=== PATIENT | male | born 1990 | race Caucasian/White ===

== ENCOUNTER 2016-09-10 19:44 | Emergency (ER) | payer MEDICARE, OTHER ==
[2016-09-10] MEDS ORDERED: DIPHTH,PERTUSS(ACELL),TET VAC 0.5 ML VIAL IM ONE ×2 (20:59→21:01)
[2016-09-10] MEDS ORDERED: AMOX TR/POTASSIUM CLAVULANATE 875 MG TABLET PO ONE (21:50)
[2016-09-10] MEDS ORDERED: AMOX TR/POTASSIUM CLAVULANATE 875 MG TABLET ONE (21:52)
--- OUTSIDE RECORDS SUMMARY | 2016-09-10 21:52 | XMS REPORT | Continuity of Care Document ---
:1990 Author Organization [facility] ([facility]) Address [address] [place] [address] Phone [phone] Care Team Providers Name Role Phone JaneDany Primary Care Provider [phone] Source Comments This disclosure is being made pursuant to the Care Everywhere program, applicable federal and state laws, and may not contain all informaitonavailable regarding this patient.[facility] ([facility]) Active Allergies and Adverse Reactions No Known Allergies Current Medications Prescription Sig. Disp. Refills Start Date End Date Status montelukast take 10 mg by mouth Active (SINGULAIR) 10 mg daily. tablet levothyroxine 112 mcg Take 112 mcg by mouth Active tablet daily. Indications: Hypothyroidism DIAZEPAM (VALIUM PO) Take 500 mg by mouth Active 2 times daily. midazolam 5 mg/mL 1 ml in nose for GTC 3 mL 4 01/16/2012 Active injection lasting over 3-5 min. Or if 2 or more seizures in 1 day Indications: STATUS EPILEPTICUS zonisamide 100 mg Take 3 Caps by mouth 180 Cap 6 02/16/2012 Active capsule 2 times daily. Indications: PARTIAL EPILEPSY TREATMENT ADJUNCT topiramate 200 mg Take 1 Tab by mouth 2 60 Tab 5 02/16/2012 Active tablet times daily. Indications: TONIC-CLONIC EPILEPSY lacosamide (VIMPAT) Take 1 Tab by mouth 2 60 Tab 0 07/28/2012 Active 200 mg tablet times daily. 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 Other convulsions 11/25/2007 Resolved Problems Problem Noted Date Resolved Date Headache(784.0) 07/02/2007 05/18/2011 Immunizations Name Dates Previously Given Next Due Influenza, live attenuated nasal 05/14/2011 Social History Tobacco Use Types Packs/Day Years Used Date Never Smoker Smokeless Tobacco: Never Used Last Filed Vital Signs Vital Sign Reading Time Taken Blood Pressure 129/66 08/21/2011 10:59 AM CDT Pulse 91 08/21/2011 10:59 AM CDT Temperature 36.7 C (98.1 F) 05/18/2011 8:00 AM COMPLEX MANAGER Respiratory Rate 16 05/18/2011 8:00 AM COMPLEX MANAGER Height 1.88 m (6' 2") 08/21/2011 10:59 AM CDT Weight 131.679 kg (290 lb 4.8 oz) 08/21/2011 10:59 AM CDT Body Mass Index 37.26 08/21/2011 10:59 AM CDT Oxygen Saturation 98% 05/18/2011 8:00 AM COMPLEX MANAGER Plan of Care Health Maintenance Due Date Last Done Comments Hepatitis B Vaccine (1 of 3 - Primary Series) 1991 HPV Vaccine (1 of 3 - Male 3 Dose Series) 2002 Tdap Vaccine 2002 Lipid Disorder Screening 2009 MMR Vaccine 2009 Td Vaccine 2009 Varicella Vaccine (1 of 2 - Adult - No Evidence of 06/11/2011 Immunity) Influenza Vaccine: Seasonal (#1) 11/19/2015 05/14/2011 Results from Last 3 Months Not on file
--- NOTE | 2016-09-10 21:53 | ERNOTE ---
Animal Bite ER Presenting Symptoms: bitten Time Seen by Provider: 09/10/16 21:40 Source: patient Exam Limitations: no limitations Immunizations: IMMUNIZATION HX Immunizations Up to Date No History of Influenza Vaccine No Hx Pneumococcal Vaccination No Allergies/Adverse Reactions: Allergies No Known Allergies Allergy (Verified 09/10/16 20:13) Home Medications: HOME MEDICATIONS Levothyroxine Sodium [Synthroid] 137 mcg PO DAILY 09/23/15 [Last Taken Unknown] Montelukast Sodium [Singulair] 10 mg PO HS 09/23/15 [Last Taken Unknown] Topiramate [Topamax] 300 mg PO BID 09/23/15 [Last Taken Unknown] Zonisamide [Zonegran] 300 mg PO BID 09/23/15 [Last Taken Unknown] clonazePAM [Klonopin] 1 mg PO BID 09/23/15 [Last Taken Unknown] Amox Tr/Potassium Clavulanate [Augmentin 875-125 Tablet] 875 mg PO Q12H #14 tab 09/10/16 [Last Taken Unknown] Narrative: Pt's dogs were fighting and he tried to pull them apart and got bitten on the left hand Onset Time: today Location of Incident: Reports: home Animal Type: Reports: dog, family pet Animal Appearance: healthy Animal's Immunization Status: Reports: UTD Observation/Capture: Reports: animal can be observed for 10 days Context of Attack: Reports: animals fighting Severity of injury: Reports: bitten Location of Injury: Reports: upper extremity (R) Associated symptoms: Reports: pain on movement Review of Systems - Review of Systems Constitutional: Absent: recent illness EYE: Present: no symptoms reported Musculoskeletal: Present: muscle pain, muscle stiffness Skin: Present: See HPI Neurological: Absent: numbness, tingling - Patient's Past Medical History Patient History - Medical: No pertinent hx, Hypothyroidism, Seizures Patient History - Cardiac/Respiratory: Other Patient History - Cancer: No Hx of Cancer Patient History - Surgical Procedures: T & A Patient History - Other: None - Social History Living Situations: home Abuse History: No History of abuse Psych History: No pertinent hx Smoking Status: Former smoker Alcohol Use: occasionally Drug Use: none - Immunizations Immunizations Up to Date: No Hx Pneumococcal Vaccination: No History of Influenza Vaccine: No Physical Exam - Physical Exam General Appearance: Present: wd/wn, alert, no apparent distress Extremity Exam: Present: normal except - - swelling of the left thumb web, mild pain with palpation, mild induration Neurological Exam: Present: alert, oriented, normal mood/affect, no motor/ sensory deficits Skin Exam: Present: other - left hand at the 1st MCPJ has a puncture wound and # 2- 1cm scratches near the base. Puncture wound is bleeding slowly ED Progress - Vital Signs Vital Signs: Vital Signs 09/10/16 20:09 Temperature 37 C Pulse Rate 80 Respiratory 18 Rate Blood Pressure 118/68 O2 Sat by Pulse 98 Oximetry - Progress/Reassessment Chief Complaint: Animal Bite Departure Clinical Impression: Dog bite of hand Qualifiers: Encounter type: initial encounter Laterality: left Qualified Code(s): S61.452A - Open bite of left hand, initial encounter - Departure Disposition: Home Follow Up Needed Condition: Good Instructions: Animal Bite Additional Instructions: See your regular doctor in 3-5 days to follow healing process Referrals: Dany Lara MD [Primary Care Provider] - Prescriptions: Amox Tr/Potassium Clavulanate [Augmentin 875-125 Tablet] 875 mg PO Q12H #14 tab
[2016-09-10 22:01] VITALS: BP 140/81
== END 2016-09-10 22:00 | disposition home or self-care (01) ==
LOC: ER 19:44
DX: S61.452A Open bite of left hand, initial encounter (principal); W54.0XXA Bitten by dog, initial encounter; Y93.9 Activity, unspecified; Y92.009 Unspecified place in unspecified non-institutional (private) residence as the place of occurrence of the external cause; Z23 Encounter for immunization; G40.409 Other generalized epilepsy and epileptic syndromes, not intractable, without status epilepticus

== ENCOUNTER 2017-03-13 23:24 | Emergency (ER) | payer MEDICARE, OTHER ==
[2017-03-13 23:43] LABS: Hematocrit 45.9 % (42.0-52.0); Hemoglobin 16.2 gm/dL (13.5-18.0); Mean Cell Volume 86.6 fl (78-100); Mean Corpuscular Hemoglobin 30.6 pg (27-31); Mean Corpuscular Hgb Conc 35.3 g/dl (32-36); Mean Platelet Volume 10.6 fl (6.0-9.5); Neutrophil # 3.6 K/mm3 (1.3-6.0); Platelet Count 235 K/mm3 (150-450); Red Cell Distribution Width 12.4 % (11.5-14.0); White Blood Count 7.5 K/mm3 (4.0-10.5)
[2017-03-13 23:53] LABS: Phenytoin 0.7 mcg/mL (10-20)
[2017-03-13] MEDS ORDERED: LORazepam 2 MG/ML DISP.SYRIN ONE (23:54)
[2017-03-13] MEDS ORDERED: LORazepam 2 MG/ML DISP.SYRIN IM ONE (23:57)
[2017-03-13] MEDS ORDERED: PHENYTOIN SODIUM 1,000 MG in NORMAL SALINE 50 ML IV ONE (23:59)
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
[2017-03-14 00:32] VITALS: BP 133/63
== END 2017-03-14 01:00 ==
LOC: ER 23:24
DX: R56.9 Unspecified convulsions (principal); F10.129 Alcohol abuse with intoxication, unspecified; F17.200 Nicotine dependence, unspecified, uncomplicated
CPT/HCPCS: 36415; 80185; 85025; 96365; 96372; 99284; G0481

== ENCOUNTER 2017-03-14 03:25 | Emergency (ER) | payer MEDICARE, OTHER ==
[2017-03-14] MEDS ORDERED: NORMAL SALINE 1,000 ML IV ONE (03:35)
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
[2017-03-14 04:00] LABS: Cocaine Ur Negative (NEGATIVE); Urine Barbiturate Negative (NEGATIVE); Urine Benzodiazepines Negative (NEGATIVE); Urine Opiates Negative (NEGATIVE); Urine PCP Negative (NEGATIVE); Urine THC Negative (NEGATIVE)
[2017-03-14 04:12] LABS: Albumin * 4.3 gm/dl (3.4-5.0); Anion Gap 19.2 mmol/L (6.8-13.8); BUN/Creatinine Ratio 8.3 (9.0-21.6); Bilirubin, Total 0.2 mg/dL (0.0-1.1); Ca. Corrected For Albumin 8.1 mg/dL (8.4-10.2); Calcium * 8.7 mg/dL (7.9-10.9); Carbon Dioxide 22.3 mmol/L (24-32.6); Potassium 3.5 mmol/L (3.4-4.6); Total Protein 7.9 gm/dL (6.2-8.2)
[2017-03-14] MEDS ORDERED: ACETAMINOPHEN 325 MG TABLET ONE (04:17)
[2017-03-14] MEDS ORDERED: LORazepam 2 MG/ML DISP.SYRIN ONE (04:18)
[2017-03-14] MEDS: LORazepam 2 MG/ML DISP.SYRIN IV ONE ×3 (04:22→04:31)
[2017-03-14] MEDS ORDERED: ACETAMINOPHEN 325 MG TABLET PO ONE (04:23)
[2017-03-14 04:40] VITALS: BP 115/74
== END 2017-03-14 04:40 ==
LOC: ER 03:25
PROC: 0T9B7ZZ Drainage of Bladder, Via Natural or Artificial Opening (ICD-10-PCS; principal; 2017-03-14)
DX: R56.9 Unspecified convulsions (principal); F17.200 Nicotine dependence, unspecified, uncomplicated
CPT/HCPCS: 36415; 51701; 80053; 80307; 83605; 96374; 99284; G0481